=== PATIENT | male | born 1955 | race Caucasian/White ===

== ENCOUNTER 2021-12-17 00:50 | Inpatient (IN) ==
[2021-12-17] MEDS ORDERED: Acetaminophen 325 MG TABLET PO PRN (05:30)
[2021-12-17] MEDS ORDERED: Melatonin 3 MG TABLET PO PRN (05:30)
[2021-12-17] MEDS ORDERED: Naloxone 0.4 MG/ML INJ IVP PRN (05:30)
[2021-12-17] MEDS ORDERED: Ondansetron 4 MG/2 ML VIAL IVP PRN (05:30)
[2021-12-17] MEDS ORDERED: *HR* HYDROcodone/Acet 5/325 mg TABLET PO PRN (05:30)
[2021-12-17] MEDS ORDERED: Iopamidol - 370 500 ML MLS IVP ONE (05:37)
[2021-12-17] MEDS: 0.9 % Sodium Chloride 1,000 ML IVC SCH (06:01)
[2021-12-17] MEDS: Ipratropium/Albuterol Neb 3 ML IH PRN (06:02)
[2021-12-17 06:41] LABS: Basophils % 0.3 %; Hematocrit 41.6 % (37.5-50.1); Hemoglobin 15.6 g/dL (12.9-16.9); Immature Granulocytes % 0.4 % (0-4); Lymphocytes # 0.3 K/mcL (0.6-4.6); Lymphocytes % 2.4 %; Mean Corpuscular HGB Conc 37.5 g/dL (31.6-35.5); Mean Corpuscular Hemoglobin 33.1 pg (28.0-33.3); Mean Corpuscular Volume 88.3 fL (83.0-100.0); Mean Platelet Volume 10.5 fL (9.4-12.4); Monocytes # 0.1 K/mcL (0.0-1.3); Monocytes % 0.7 %; Platelet Count 235 K/mcL (140-400); Red Blood Count 4.71 M/mcL (4.19-5.50); Red Cell Distribution Width 12.2 % (11.5-14.5); Segmented Neutrophils % 96.2 %; White Blood Count 11.4 K/mcL (4.3-11.1)
[2021-12-17 06:49] LABS: INR 1.1; Prothrombin Time 11.8 Seconds (9.4-12.1)
[2021-12-17 07:05] LABS: Calcium 9.4 mg/dL (8.6-10.3)
[2021-12-17] MEDS: cefTRIAXone 1,000 MG in Water for inj. (sterile) 10 ML IVP SCH (10:37)
[2021-12-17] MEDS: Azithromycin 500 MG in 0.9 % Sodium Chloride 250 ML IVPB SCH (10:40)
[2021-12-17] MEDS: MethylPREDNISolone 40 MG/ML VIAL IVP SCH ×2 (10:40→18:02)
[2021-12-17 11:59] LABS: Calcium 9.4 mg/dL (8.6-10.3); Potassium 4.3 mEq/L (3.5-5.1)
[2021-12-17] MEDS: *HR* Heparin 5,000 UNIT/ML VIAL SQ SCH (15:00)
[2021-12-17 18:58] LABS: Calcium 9.1 mg/dL (8.6-10.3); Potassium 4.3 mEq/L (3.5-5.1)
[2021-12-17] MEDS ORDERED: Metoprolol XL (24 HR) Succ 50 MG TAB.ER.24H PO SCH (21:00)
[2021-12-17] MEDS ORDERED: polyethylene glycoL 3350 17 GM POWD.PACK PO PRN (21:13)
[2021-12-17 21:47] LABS: Bilirubin,Urine Negative (Negative); Blood,Urine Negative (Negative); Clarity,Urine Clear (Clear); Color,Urine Light-Yellow (Yellow); Glucose,Urine (UA) Normal (Normal); Ketones,Urine Negative (Negative); Leukocyte Esterase,Urine Moderate (Negative); Mucus,Urine Few per lpf (None-Few); Nitrite,Urine Negative (Negative); PH,Urine 6.5 pH Units (5.0-8.0); Protein,Urine Trace mg/dL (Neg-Trace); RBC,Urine 0-3 per hpf (0-3); Specific Gravity,Urine 1.014 (1.010-1.025); Urobilinogen,Urine Normal (Normal); WBC,Urine 30-50 per hpf (0-3)
[2021-12-17 22:08] LABS: Calcium 9.2 mg/dL (8.6-10.3); Potassium 4.4 mEq/L (3.5-5.1)
[2021-12-18] MEDS: 0.9 % Sodium Chloride 1,000 ML IVC SCH (00:08)
[2021-12-18] MEDS: QUEtiapine Fumarate 300 MG TABLET PO SCH ×2 (00:09→20:13)
[2021-12-18] MEDS: *HR* Heparin 5,000 UNIT/ML VIAL SQ SCH ×4 (00:10→23:08)
[2021-12-18] MEDS: MethylPREDNISolone 40 MG/ML VIAL IVP SCH ×2 (00:10→11:01)
[2021-12-18] MEDS: *HR* Metoprolol 5 MG/5 ML VIAL IVP SCH ×7 (00:10→23:07)
[2021-12-18] MEDS ORDERED: Milk and Molasses Enema 200 ML RC ONE (00:45)
[2021-12-18] MEDS ORDERED: Pantoprazole 40 MG in 0.9 % Sodium Chloride Mini Bag 100 ML IVC SCH (01:30)
[2021-12-18 01:31] LABS: Basophils % 0.1 %; Hematocrit 39.1 % (37.5-50.1); Hemoglobin 14.5 g/dL (12.9-16.9); Immature Granulocytes % 0.5 % (0-4); Lymphocytes # 0.6 K/mcL (0.6-4.6); Lymphocytes % 3.5 %; Mean Corpuscular Hemoglobin 32.4 pg (28.0-33.3); Mean Corpuscular Volume 87.5 fL (83.0-100.0); Mean Platelet Volume 10.4 fL (9.4-12.4); Monocytes % 6.2 %; Neutrophils # 14.7 K/mcL (1.6-8.9); Platelet Count 258 K/mcL (140-400); Red Blood Count 4.47 M/mcL (4.19-5.50); Red Cell Distribution Width 11.9 % (11.5-14.5); Segmented Neutrophils % 89.7 %; White Blood Count 16.4 K/mcL (4.3-11.1)
[2021-12-18] MEDS ORDERED: Pantoprazole 40 MG VIAL IVP ONE (01:32)
[2021-12-18 01:36] LABS: Mean Corpuscular HGB Conc 37.1 g/dL (31.6-35.5)
[2021-12-18] MEDS: Azithromycin 500 MG in 0.9 % Sodium Chloride 250 ML IVPB SCH (06:29)
[2021-12-18 07:04] LABS: Prothrombin Time 11.6 Seconds (9.4-12.1)
[2021-12-18 07:15] LABS: Calcium 8.7 mg/dL (8.6-10.3); Potassium 4.4 mEq/L (3.5-5.1)
[2021-12-18 07:16] LABS: Calcium 8.8 mg/dL (8.6-10.3); Potassium 4.5 mEq/L (3.5-5.1)
[2021-12-18 10:39] LABS: Calcium 8.9 mg/dL (8.6-10.3); Potassium 4.4 mEq/L (3.5-5.1)
[2021-12-18] MEDS: cefTRIAXone 1,000 MG in Water for inj. (sterile) 10 ML IVP SCH (10:42)
[2021-12-18] MEDS: QUEtiapine Fumarate 25 MG TABLET PO SCH ×2 (10:42→16:54)
[2021-12-18] MEDS: lisinopriL 20 MG TABLET PO SCH (10:42)
[2021-12-18] MEDS: Ipratropium/Albuterol Neb 3 ML IH PRN (11:25)
[2021-12-18 14:29] LABS: Potassium 4.4 mEq/L (3.5-5.1)
[2021-12-18 18:27] LABS: Calcium 8.8 mg/dL (8.6-10.3); Potassium 4.2 mEq/L (3.5-5.1)
[2021-12-18 22:30] LABS: Potassium 4.2 mEq/L (3.5-5.1)
[2021-12-19 03:34] LABS: Basophils % 0.1 %; Hematocrit 39.7 % (37.5-50.1); Hemoglobin 14.3 g/dL (12.9-16.9); Immature Granulocytes % 0.4 % (0-4); Lymphocytes # 1.3 K/mcL (0.6-4.6); Lymphocytes % 8.7 %; Mean Corpuscular Hemoglobin 32.1 pg (28.0-33.3); Mean Corpuscular Volume 89.2 fL (83.0-100.0); Mean Platelet Volume 10.5 fL (9.4-12.4); Monocytes # 1.5 K/mcL (0.0-1.3); Monocytes % 10.7 %; Neutrophils # 11.4 K/mcL (1.6-8.9); Platelet Count 204 K/mcL (140-400); Red Blood Count 4.45 M/mcL (4.19-5.50); Red Cell Distribution Width 12.4 % (11.5-14.5); Segmented Neutrophils % 80.1 %; White Blood Count 14.3 K/mcL (4.3-11.1)
[2021-12-19] MEDS: *HR* Metoprolol 5 MG/5 ML VIAL IVP SCH ×3 (03:37→10:51)
[2021-12-19 03:41] LABS: Calcium 9.1 mg/dL (8.6-10.3); Potassium 3.8 mEq/L (3.5-5.1)
[2021-12-19] MEDS: Ipratropium/Albuterol Neb 3 ML IH PRN (04:24)
[2021-12-19] MEDS: *HR* Heparin 5,000 UNIT/ML VIAL SQ SCH ×2 (05:16→17:29)
[2021-12-19] MEDS: Azithromycin 500 MG in 0.9 % Sodium Chloride 250 ML IVPB SCH (06:55)
[2021-12-19] MEDS ORDERED: predniSONE 20 MG TABLET PO SCH (09:00)
[2021-12-19] MEDS: QUEtiapine Fumarate 25 MG TABLET PO SCH ×2 (09:20→17:32)
[2021-12-19] MEDS: cefTRIAXone 1,000 MG in Water for inj. (sterile) 10 ML IVP SCH (09:20)
[2021-12-19] MEDS: lisinopriL 20 MG TABLET PO SCH (09:20)
[2021-12-19 09:34] LABS: Total Volume 24 Hour,Urine 7.46 Liters (0.80-1.80)
[2021-12-19 10:53] VITALS: BP 118/75; PULSE 91; TEMP 98.1
[2021-12-19 11:08] LABS: Calcium 8.8 mg/dL (8.6-10.3); Potassium 3.8 mEq/L (3.5-5.1)
[2021-12-19] MEDS ORDERED: Metoprolol XL (24 HR) Succ 50 MG TAB.ER.24H PO SCH (12:48)
[2021-12-19 14:43] VITALS: O2SAT 97
[2021-12-19 14:55] LABS: Potassium 4.3 mEq/L (3.5-5.1)
[2021-12-19] MEDS ORDERED: FluPHENAZine Decanoate 25 MG/ML MLS IM SCH (17:00)
[2021-12-19] MEDS ORDERED: QUEtiapine Fumarate 300 MG TABLET PO SCH (21:00)
[2021-12-19] MEDS ORDERED: Famotidine 20 MG TABLET PO SCH (21:00)
[2021-12-20] MEDS ORDERED: Multivit/Ca/Min/Fe/FA 1 TAB TABLET PO SCH (09:00)
[2021-12-20] MEDS ORDERED: Aspirin Enteric Coated 81 MG Tablet PO SCH (09:00)
[2021-12-21 15:08] LABS: Immunoglobulin A 124 mg/dL (68-408); Immunoglobulin G 1455 mg/dL (768-1632); Immunoglobulin M 105 mg/dL (35-263); Kappa Qnt Free Light Chains 28.34 mg/L (3.30-19.40); Lambda Qnt Free Light Chains 20.21 mg/L (5.71-26.30)
== END 2021-12-19 18:21 | DRG 177 ==
LOC: 2NENU → SUATTDRO 04:40
PROVIDERS: ADMIT Internal Medicine; ATTEND Internal Medicine

== ENCOUNTER 2022-01-27 12:01 | Inpatient (IN) ==
[2022-01-27] MEDS ORDERED: Iopamidol - 370 500 ML MLS IVP ONE (12:04)
[2022-01-27 12:52] LABS: Hematocrit 33.7 % (37.5-50.1); Hemoglobin 12.2 g/dL (12.9-16.9); Mean Corpuscular HGB Conc 36.2 g/dL (31.6-35.5); Mean Corpuscular Hemoglobin 33.5 pg (28.0-33.3); Mean Corpuscular Volume 92.6 fL (83.0-100.0); Mean Platelet Volume 11.5 fL (9.4-12.4); Platelet Count 183 K/mcL (140-400); Red Blood Count 3.64 M/mcL (4.19-5.50); White Blood Count 24.1 K/mcL (4.3-11.1)
[2022-01-27] MEDS ORDERED: Azithromycin 500 MG in 0.9 % Sodium Chloride 250 ML IVPB ONE (12:56)
[2022-01-27] MEDS ORDERED: cefTRIAXone 2,000 MG in 0.9 % Sodium Chloride 20 ML IVP ONE (13:00)
[2022-01-27 13:01] LABS: INR 1.2; Prothrombin Time 13.7 Seconds (9.4-12.1)
[2022-01-27 13:05] LABS: Activated Partial Thrombo Time 19.9 Seconds (26.0-36.0)
[2022-01-27 13:13] LABS: Calcium 8.7 mg/dL (8.6-10.3); Potassium 3.7 mEq/L (3.5-5.1); Troponin I 0.04 ng/mL (< 0.04)
[2022-01-27 14:10] LABS: Adenovirus Not Detected (Not Detect); Bordetella Pertussis Not Detected (Not Detect); Chlamydophila pneumoniae Not Detected (Not Detect); Coronavirus 229E Not Detected (Not Detect); Coronavirus HKU1 Not Detected (Not Detect); Coronavirus NL63 Not Detected (Not Detect); Coronavirus OC43 Not Detected (Not Detect); Human Metapneumovirus Not Detected (Not Detect); Human Rhinovirus/Enterovirus Not Detected (Not Detect); Influenza A Subtype 2009 H1 Not Detected (Not Detect); Influenza B Not Detected (Not Detect); Mycoplasma pneumoniae Not Detected (Not Detect); Parainfluenza Virus 1 Not Detected (Not Detect); Parainfluenza Virus 2 Not Detected (Not Detect); Parainfluenza Virus 3 Not Detected (Not Detect); Parainfluenza Virus 4 Not Detected (Not Detect); Respiratory Syncytial Virus Not Detected (Not Detect); SARS-CoV-2 Not Detected (Not Detect)
[2022-01-27] MEDS ORDERED: Aspirin 81 MG TAB.CHEW PO STA (14:29)
[2022-01-27] MEDS ORDERED: Melatonin 3 MG TABLET PO PRN (15:19)
[2022-01-27] MEDS ORDERED: MOM Conc 10 ML UD.LIQ PO PRN (15:19)
[2022-01-27] MEDS ORDERED: Mag Hydrox/Al Hydrox/Simeth 30 ML UDC PO PRN (15:19)
[2022-01-27] MEDS ORDERED: Naloxone 0.4 MG/ML INJ IVP PRN (15:19)
[2022-01-27] MEDS ORDERED: Ondansetron ODT 4 MG TAB.RAPDIS SL PRN (15:19)
[2022-01-27 19:51] LABS: Bacteria,Urine Few per hpf (None-Few); Bilirubin,Urine Negative (Negative); Blood,Urine Small (Negative); Clarity,Urine Turbid (Clear); Color,Urine Yellow (Yellow); Glucose,Urine (UA) Normal (Normal); Ketones,Urine Trace mg/dL (Negative); Leukocyte Esterase,Urine Large (Negative); Mucus,Urine Few per lpf (None-Few); Nitrite,Urine Positive (Negative); Protein,Urine 50 mg/dL (Neg-Trace); RBC,Urine 15-30 per hpf (0-3); Specific Gravity,Urine > 1.030 (1.010-1.025); Squamous Epithelial Cell,Urine Few per hpf (None-Few); Urobilinogen,Urine Normal (Normal); WBC,Urine TNTC per hpf (0-3)
[2022-01-27] MEDS ORDERED: Divalproex (24 HR) 500 MG TABLET PO SCH (21:00)
[2022-01-27] MEDS ORDERED: Haloperidol Lactate 5 MG/ML VIAL IVP ONE (22:10)
[2022-01-27] MEDS ORDERED: *HR* Metoprolol 5 MG/5 ML VIAL IVP ONE (23:04)
[2022-01-27] MEDS ORDERED: QUEtiapine Fumarate 25 MG TABLET PO SCH (23:15)
[2022-01-27] MEDS: Ipratropium/Albuterol Neb 3 ML IH PRN (23:21)
[2022-01-28] MEDS: *HR* LORazepam 2 MG/ML VIAL IVP ONE ×2 (01:32→04:57)
[2022-01-28] MEDS ORDERED: 0.9 % Sodium Chloride 1,000 ML IVC ONE (02:34)
[2022-01-28] MEDS ORDERED: *HR* Metoprolol 5 MG/5 ML VIAL IVP ONE (02:35)
[2022-01-28] MEDS ORDERED: *HR* LORazepam 2 MG/ML VIAL IVP ONE (04:37)
[2022-01-28] MEDS: *HR* Enoxaparin 40 MG/0.4 ML SYRINGE SQ SCH (07:40)
[2022-01-28] MEDS: Azithromycin 500 MG in 0.9 % Sodium Chloride 250 ML IVPB SCH (07:41)
[2022-01-28] MEDS: Aspirin Enteric Coated 81 MG Tablet PO SCH (07:49)
[2022-01-28] MEDS: cefTRIAXone 1,000 MG in 0.9 % Sodium Chloride Mini Bag 100 ML IVPB SCH (07:54)
[2022-01-28] MEDS ORDERED: Metoprolol XL (24 HR) Succ 25 MG TAB.ER.24H PO SCH (09:00)
[2022-01-28] MEDS ORDERED: Acetaminophen 325 MG TABLET PO PRN (09:40)
[2022-01-28 11:05] LABS: Basophils # 0.1 K/mcL (0.0-0.2); Basophils % 0.7 %; Eosinophils % 0.3 %; Hematocrit 36.3 % (37.5-50.1); Hemoglobin 12.7 g/dL (12.9-16.9); Immature Granulocytes % 0.5 % (0-4); Lymphocytes # 0.3 K/mcL (0.6-4.6); Lymphocytes % 2.7 %; Mean Corpuscular Hemoglobin 32.5 pg (28.0-33.3); Mean Corpuscular Volume 92.8 fL (83.0-100.0); Mean Platelet Volume 10.4 fL (9.4-12.4); Monocytes # 0.8 K/mcL (0.0-1.3); Monocytes % 7.5 %; Neutrophils # 8.9 K/mcL (1.6-8.9); Platelet Count 214 K/mcL (140-400); Red Blood Count 3.91 M/mcL (4.19-5.50); Red Cell Distribution Width 13.8 % (11.5-14.5); Segmented Neutrophils % 88.3 %
[2022-01-28 11:09] LABS: White Blood Count 10.1 K/mcL (4.3-11.1)
[2022-01-28 11:26] LABS: Calcium 8.5 mg/dL (8.6-10.3); Potassium 3.6 mEq/L (3.5-5.1)
[2022-01-28] MEDS: QUEtiapine Fumarate 25 MG TABLET PO SCH ×2 (11:57→18:06)
[2022-01-28] MEDS: Ipratropium/Albuterol Neb 3 ML IH PRN (13:00)
[2022-01-28] MEDS: Nicotine 14 MG PATCH.TD24 TD SCH (20:09)
[2022-01-28] MEDS ORDERED: QUEtiapine Fumarate 300 MG TABLET PO SCH (21:00)
[2022-01-29] MEDS: Ipratropium/Albuterol Neb 3 ML IH PRN (00:34)
[2022-01-29] MEDS: *HR* Enoxaparin 40 MG/0.4 ML SYRINGE SQ SCH (05:54)
[2022-01-29] MEDS: QUEtiapine Fumarate 25 MG TABLET PO SCH ×3 (08:01→15:21)
[2022-01-29] MEDS: cefTRIAXone 1,000 MG in 0.9 % Sodium Chloride Mini Bag 100 ML IVPB SCH (08:01)
[2022-01-29 08:07] VITALS: TEMP 97.2
[2022-01-29] MEDS: Aspirin Enteric Coated 81 MG Tablet PO SCH (08:40)
[2022-01-29] MEDS: Nicotine 14 MG PATCH.TD24 TD SCH (08:40)
[2022-01-29] MEDS: Azithromycin 500 MG in 0.9 % Sodium Chloride 250 ML IVPB SCH (08:49)
[2022-01-29] MEDS ORDERED: lisinopriL 20 MG TABLET PO SCH (09:00)
[2022-01-29] MEDS ORDERED: Haloperidol Lactate 5 MG/ML VIAL IVP ONE (10:19)
[2022-01-29] MEDS ORDERED: Metoprolol XL (24 HR) Succ 25 MG TAB.ER.24H PO SCH (11:15)
[2022-01-29] MEDS ORDERED: *HR* LORazepam 0.5 MG TABLET PO SCH (12:30)
[2022-01-29 15:21] VITALS: BP 129/78; PULSE 89; O2SAT 92
[2022-01-29 15:40] LABS: Adenovirus Not Detected (Not Detect); Bordetella Pertussis Not Detected (Not Detect); Chlamydophila pneumoniae Not Detected (Not Detect); Coronavirus 229E Not Detected (Not Detect); Coronavirus HKU1 Not Detected (Not Detect); Coronavirus NL63 Not Detected (Not Detect); Coronavirus OC43 Not Detected (Not Detect); Human Metapneumovirus Not Detected (Not Detect); Human Rhinovirus/Enterovirus Not Detected (Not Detect); Influenza A Subtype 2009 H1 Not Detected (Not Detect); Influenza B Not Detected (Not Detect); Mycoplasma pneumoniae Not Detected (Not Detect); Parainfluenza Virus 1 Not Detected (Not Detect); Parainfluenza Virus 2 Not Detected (Not Detect); Parainfluenza Virus 3 Not Detected (Not Detect); Parainfluenza Virus 4 Not Detected (Not Detect); Respiratory Syncytial Virus Not Detected (Not Detect); SARS-CoV-2 Not Detected (Not Detect)
[2022-01-29] MEDS ORDERED: Divalproex (24 HR) 500 MG TABLET PO SCH (21:00)
== END 2022-01-29 18:07 | DRG 871 ==
LOC: 2ANU 12:01 → EMEROOARM 12:01 → SUATTDRO 15:04 → 2ANU 17:02
PROVIDERS: ADMIT Hospitalist; ATTEND Registered Nurse

== ENCOUNTER 2022-01-29 23:04 | Inpatient (IN) ==
[2022-01-29] MEDS ORDERED: Vancomycin 1,250 MG/262.5 ML IV.SOLN IVPB ONE (23:46)
[2022-01-29] MEDS ORDERED: Piperacillin/Tazobactam 3.375 GM in 0.9 % Sodium Chloride Mini Bag 100 ML IVPB ONE (23:47)
[2022-01-29 23:57] LABS: Basophils % 0.4 %; Eosinophils % 0.1 %; Hematocrit 34.2 % (37.5-50.1); Hemoglobin 12.3 g/dL (12.9-16.9); Immature Granulocytes % 0.4 % (0-4); Lymphocytes # 0.5 K/mcL (0.6-4.6); Lymphocytes % 5.5 %; Mean Corpuscular Hemoglobin 32.5 pg (28.0-33.3); Mean Corpuscular Volume 90.2 fL (83.0-100.0); Mean Platelet Volume 10.5 fL (9.4-12.4); Monocytes # 1.2 K/mcL (0.0-1.3); Monocytes % 12.6 %; Platelet Count 194 K/mcL (140-400); Red Blood Count 3.79 M/mcL (4.19-5.50); Red Cell Distribution Width 13.7 % (11.5-14.5); White Blood Count 9.9 K/mcL (4.3-11.1)
[2022-01-30 00:30] LABS: Alanine Aminotransferase 25 Units/L (7-52); Albumin 3.2 g/dL (3.5-5.7); Alkaline Phosphatase 69 Units/L (34-104); Bilirubin,Direct 0.1 mg/dL (0.0-0.2); Bilirubin,Indirect 0.3 mg/dL (0.0-1.0); Bilirubin,Total 0.4 mg/dL (0.3-1.0); Blood Urea Nitrogen 19 mg/dL (8-23); Calcium 8.6 mg/dL (8.6-10.3); Chloride 98 mEq/L (98-107); Glucose 131 mg/dL (70-105); Osmolality,Calculated 278 (280-300); Potassium 3.2 mEq/L (3.5-5.1); Sodium 132 mEq/L (136-145); Troponin I < 0.03 ng/mL (< 0.04)
[2022-01-30 00:55] LABS: Bacteria,Urine Few per hpf (None-Few); Bilirubin,Urine Negative (Negative); Blood,Urine Trace (Negative); Clarity,Urine Clear (Clear); Color,Urine Light-Yellow (Yellow); Glucose,Urine (UA) Normal (Normal); Ketones,Urine Trace mg/dL (Negative); Leukocyte Esterase,Urine Moderate (Negative); Mucus,Urine Few per lpf (None-Few); Nitrite,Urine Negative (Negative); PH,Urine 6.5 pH Units (5.0-8.0); Protein,Urine 30 mg/dL (Neg-Trace); Specific Gravity,Urine 1.012 (1.010-1.025); Urobilinogen,Urine Normal (Normal); WBC,Urine 30-50 per hpf (0-3)
[2022-01-30] MEDS ORDERED: Ringers Solution, Lactated 1,000 ML IVC ONE (01:03)
[2022-01-30] MEDS ORDERED: 0.9 % Sodium Chloride 1,000 ML ONE (01:03)
[2022-01-30] MEDS: 0.9 % Sodium Chloride 1,000 ML IVC SCH ×2 (01:04→01:15)
[2022-01-30 01:30] LABS: Albumin/Globulin Ratio 1.2 (1.1-2.2); Aspartate Amino Transferase 65 Units/L (13-39); BUN/Creatinine Ratio 21 (6-26); Carbon Dioxide 25 mEq/L (23-29); Globulin 2.7 g/dL (2.4-3.5); Magnesium 1.7 mg/dL (1.6-2.6); Total Protein 5.9 g/dL (6.4-8.9)
[2022-01-30] MEDS ORDERED: Norepinephrine 4 MG/254 ML IV.SOLN IVC ONE (02:37)
[2022-01-30] MEDS: Norepinephrine 4 MG/254 ML IV.SOLN IVC SCH (02:43)
[2022-01-30] MEDS ORDERED: Naloxone 0.4 MG/ML INJ IVP PRN (04:00)
[2022-01-30] MEDS ORDERED: *HR* Enoxaparin 30 MG/0.3 ML SYRINGE SQ SCH (06:00)
[2022-01-30] MEDS: Piperacillin/Tazobactam 3.375 GM in 0.9 % Sodium Chloride Mini Bag 100 ML IVPB SCH ×3 (07:50→23:41)
[2022-01-30] MEDS ORDERED: *HR* LORazepam 0.5 MG TABLET PO PRN (07:53)
[2022-01-30 08:46] LABS: Calcium 8.2 mg/dL (8.6-10.3); Potassium 3.6 mEq/L (3.5-5.1)
[2022-01-30] MEDS: Divalproex (24 HR) 500 MG TABLET PO SCH ×2 (09:12→21:50)
[2022-01-30] MEDS: Aspirin Enteric Coated 81 MG Tablet PO SCH (09:12)
[2022-01-30] MEDS: Metoprolol XL (24 HR) Succ 25 MG TAB.ER.24H PO SCH (09:13)
[2022-01-30] MEDS: Famotidine 20 MG TABLET PO SCH ×2 (09:13→21:53)
[2022-01-30] MEDS ORDERED: methylPREDNISolone 125 MG/2 ML VIAL IVP ONE (09:17)
[2022-01-30] MEDS: Albuterol 2.5 MG/3 ML NEBULIZER IH SCH ×5 (09:30→23:42)
[2022-01-30 11:53] LABS: VBG HCO3 20 mEq/L (21-27); VBG PCO2 33 mmHg (41-51); VBG PO2 190 mmHg (25-50)
[2022-01-30] MEDS: MethylPREDNISolone 40 MG/ML VIAL IVP SCH ×2 (16:32→23:41)
[2022-01-30 18:16] LABS: Calcium 8.3 mg/dL (8.6-10.3); Potassium 3.8 mEq/L (3.5-5.1)
[2022-01-31] MEDS: Albuterol 2.5 MG/3 ML NEBULIZER IH SCH ×6 (04:37→22:35)
[2022-01-31 05:23] LABS: Basophils % 0.2 %; Hematocrit 33.1 % (37.5-50.1); Hemoglobin 11.9 g/dL (12.9-16.9); Immature Granulocytes % 0.7 % (0-4); Lymphocytes # 0.5 K/mcL (0.6-4.6); Lymphocytes % 5.8 %; Mean Corpuscular Hemoglobin 32.6 pg (28.0-33.3); Mean Corpuscular Volume 90.7 fL (83.0-100.0); Mean Platelet Volume 10.4 fL (9.4-12.4); Monocytes # 0.2 K/mcL (0.0-1.3); Monocytes % 2.6 %; Neutrophils # 7.7 K/mcL (1.6-8.9); Platelet Count 245 K/mcL (140-400); Red Blood Count 3.65 M/mcL (4.19-5.50); Red Cell Distribution Width 13.9 % (11.5-14.5); Segmented Neutrophils % 90.7 %; White Blood Count 8.5 K/mcL (4.3-11.1)
[2022-01-31 05:45] LABS: Albumin 3.3 g/dL (3.5-5.7); Albumin/Globulin Ratio 1.3 (1.1-2.2); Bilirubin,Total 0.5 mg/dL (0.3-1.0); Calcium 8.5 mg/dL (8.6-10.3); Globulin 2.6 g/dL (2.4-3.5); Potassium 3.7 mEq/L (3.5-5.1); Total Protein 5.9 g/dL (6.4-8.9)
[2022-01-31] MEDS ORDERED: *HR* Enoxaparin 40 MG/0.4 ML SYRINGE SQ SCH (06:00)
[2022-01-31 07:22] LABS: A.calcoaceticus-baumannii cplx Not Detected (Not Detect); Bacteroides fragilis by PCR Not Detected (Not Detect); Candida albicans by PCR Not Detected (Not Detect); Candida auris by PCR Not Detected (Not Detect); Candida glabrata by PCR Not Detected (Not Detect); Candida krusei by PCR Not Detected (Not Detect); Candida parapsilosis by PCR Not Detected (Not Detect); Candida tropicalis by PCR Not Detected (Not Detect); Crypto. neoformans/gattii PCR Not Detected (Not Detect); Enterobacter cloacae Cmplx PCR Not Detected (Not Detect); Enterobacterales by PCR Not Detected (Not Detect); Enterococcus faecalis by PCR Not Detected (Not Detect); Enterococcus faecium by PCR Not Detected (Not Detect); Escherichia coli by PCR Not Detected (Not Detect); Klebs. pneumoniae group by PCR Not Detected (Not Detect); Klebsiella aerogenes by PCR Not Detected (Not Detect); Klebsiella oxytoca by PCR Not Detected (Not Detect); Proteus by PCR Not Detected (Not Detect); Pseudomonas aeruginosa by PCR Not Detected (Not Detect); Salmonella species by PCR Not Detected (Not Detect); Serratia marcescens by PCR Not Detected (Not Detect); Staph epidermidis by PCR DETECTED (Not Detect); Staph lugdunensis by PCR Not Detected (Not Detect); Staphylococcus aureus by PCR Not Detected (Not Detect); Stenotrophomonas maltophilia Not Detected (Not Detect); Streptococcus agalactiae(B)PCR Not Detected (Not Detect); Streptococcus by PCR Not Detected (Not Detect); Streptococcus pneumoniae PCR Not Detected (Not Detect); Streptococcus pyogenes (A) PCR Not Detected (Not Detect); mecA/C Methicillin-Resist Gene DETECTED (Not Detect)
[2022-01-31] MEDS: Norepinephrine 4 MG/254 ML IV.SOLN IVC SCH (07:48)
[2022-01-31] MEDS: Aspirin Enteric Coated 81 MG Tablet PO SCH ×2 (08:01→11:24)
[2022-01-31] MEDS: Metoprolol XL (24 HR) Succ 25 MG TAB.ER.24H PO SCH ×2 (08:02→11:25)
[2022-01-31] MEDS: Famotidine 20 MG TABLET PO SCH ×3 (08:02→20:23)
[2022-01-31] MEDS: Divalproex (24 HR) 500 MG TABLET PO SCH ×3 (08:03→20:23)
[2022-01-31] MEDS: MethylPREDNISolone 40 MG/ML VIAL IVP SCH ×2 (08:03→17:46)
[2022-01-31] MEDS: Piperacillin/Tazobactam 3.375 GM in 0.9 % Sodium Chloride Mini Bag 100 ML IVPB SCH ×2 (08:04→17:46)
[2022-01-31] MEDS ORDERED: Naloxone 0.4 MG/ML INJ IVP PRN (08:50)
[2022-01-31] MEDS ORDERED: Vancomycin 1,250 MG/262.5 ML IV.SOLN IVPB SCH (20:00)
[2022-01-31] MEDS: *HR* LORazepam 0.5 MG TABLET PO PRN (20:23)
[2022-02-01] MEDS: MethylPREDNISolone 40 MG/ML VIAL IVP SCH ×3 (00:42→15:48)
[2022-02-01] MEDS: Piperacillin/Tazobactam 3.375 GM in 0.9 % Sodium Chloride Mini Bag 100 ML IVPB SCH ×3 (00:42→15:48)
[2022-02-01] MEDS: Albuterol 2.5 MG/3 ML NEBULIZER IH SCH ×6 (03:49→23:36)
[2022-02-01] MEDS: *HR* Enoxaparin 40 MG/0.4 ML SYRINGE SQ SCH (06:13)
[2022-02-01 06:26] LABS: Calcium 8.4 mg/dL (8.6-10.3); Potassium 3.7 mEq/L (3.5-5.1)
[2022-02-01 06:34] LABS: Basophils % 0.4 %; Hematocrit 31.8 % (37.5-50.1); Hemoglobin 11.4 g/dL (12.9-16.9); Immature Granulocytes % 1.3 % (0-4); Lymphocytes # 0.6 K/mcL (0.6-4.6); Lymphocytes % 6.1 %; Mean Corpuscular HGB Conc 35.8 g/dL (31.6-35.5); Mean Corpuscular Hemoglobin 32.9 pg (28.0-33.3); Mean Corpuscular Volume 91.9 fL (83.0-100.0); Mean Platelet Volume 10.6 fL (9.4-12.4); Monocytes # 0.3 K/mcL (0.0-1.3); Monocytes % 2.6 %; Neutrophils # 9.3 K/mcL (1.6-8.9); Platelet Count 229 K/mcL (140-400); Red Blood Count 3.46 M/mcL (4.19-5.50); Red Cell Distribution Width 14.3 % (11.5-14.5); Segmented Neutrophils % 89.6 %; White Blood Count 10.4 K/mcL (4.3-11.1)
[2022-02-01] MEDS ORDERED: 0.9 % Sodium Chloride 1,000 ML IVC SCH (07:30)
[2022-02-01] MEDS: Metoprolol XL (24 HR) Succ 25 MG TAB.ER.24H PO SCH (09:07)
[2022-02-01] MEDS: Divalproex (24 HR) 500 MG TABLET PO SCH ×2 (09:07→20:50)
[2022-02-01] MEDS: Famotidine 20 MG TABLET PO SCH ×2 (09:07→20:51)
[2022-02-01] MEDS: Aspirin Enteric Coated 81 MG Tablet PO SCH (09:08)
[2022-02-01] MEDS: Vancomycin 1,250 MG/262.5 ML IV.SOLN IVPB SCH (12:40)
[2022-02-01] MEDS ORDERED: Vancomycin 1,250 MG/262.5 ML IV.SOLN IVPB SCH (19:00)
[2022-02-01] MEDS: QUEtiapine Fumarate 25 MG TABLET PO SCH (20:50)
[2022-02-01] MEDS: *HR* LORazepam 0.5 MG TABLET PO PRN (21:12)
[2022-02-02] MEDS: Piperacillin/Tazobactam 3.375 GM in 0.9 % Sodium Chloride Mini Bag 100 ML IVPB SCH ×3 (00:59→15:58)
[2022-02-02] MEDS: MethylPREDNISolone 40 MG/ML VIAL IVP SCH ×3 (00:59→15:53)
[2022-02-02 03:11] LABS: Basophils # 0.1 K/mcL (0.0-0.2); Basophils % 0.6 %; Hematocrit 30.5 % (37.5-50.1); Hemoglobin 10.8 g/dL (12.9-16.9); Immature Granulocytes % 2.9 % (0-4); Lymphocytes % 11.8 %; Mean Corpuscular HGB Conc 35.4 g/dL (31.6-35.5); Mean Corpuscular Hemoglobin 32.3 pg (28.0-33.3); Mean Corpuscular Volume 91.3 fL (83.0-100.0); Monocytes # 0.8 K/mcL (0.0-1.3); Neutrophils # 6.7 K/mcL (1.6-8.9); Platelet Count 214 K/mcL (140-400); Red Blood Count 3.34 M/mcL (4.19-5.50); Segmented Neutrophils % 75.7 %; White Blood Count 8.8 K/mcL (4.3-11.1)
[2022-02-02 03:45] LABS: Calcium 8.5 mg/dL (8.6-10.3); Magnesium 1.6 mg/dL (1.6-2.6); Potassium 3.4 mEq/L (3.5-5.1)
[2022-02-02] MEDS: Albuterol 2.5 MG/3 ML NEBULIZER IH SCH ×6 (04:01→23:03)
[2022-02-02] MEDS: *HR* Enoxaparin 40 MG/0.4 ML SYRINGE SQ SCH (06:40)
[2022-02-02] MEDS: Aspirin Enteric Coated 81 MG Tablet PO SCH (08:48)
[2022-02-02] MEDS: Metoprolol XL (24 HR) Succ 25 MG TAB.ER.24H PO SCH (08:48)
[2022-02-02] MEDS: Divalproex (24 HR) 500 MG TABLET PO SCH ×2 (08:48→23:06)
[2022-02-02] MEDS: Famotidine 20 MG TABLET PO SCH ×2 (08:50→23:06)
[2022-02-02] MEDS: Vancomycin 1,250 MG/262.5 ML IV.SOLN IVPB SCH (12:14)
[2022-02-02] MEDS: QUEtiapine Fumarate 25 MG TABLET PO SCH (23:06)
[2022-02-03] MEDS: Piperacillin/Tazobactam 3.375 GM in 0.9 % Sodium Chloride Mini Bag 100 ML IVPB SCH ×2 (00:15→09:02)
[2022-02-03] MEDS: MethylPREDNISolone 40 MG/ML VIAL IVP SCH ×2 (00:17→08:59)
[2022-02-03] MEDS: Albuterol 2.5 MG/3 ML NEBULIZER IH SCH ×3 (03:48→11:03)
[2022-02-03] MEDS: *HR* Enoxaparin 40 MG/0.4 ML SYRINGE SQ SCH (06:17)
[2022-02-03 07:34] VITALS: BP 137/76; PULSE 63; TEMP 97.9; O2SAT 98
[2022-02-03] MEDS: Aspirin Enteric Coated 81 MG Tablet PO SCH (09:04)
[2022-02-03] MEDS: Metoprolol XL (24 HR) Succ 25 MG TAB.ER.24H PO SCH (09:04)
[2022-02-03] MEDS: Famotidine 20 MG TABLET PO SCH (09:05)
[2022-02-03] MEDS: Divalproex (24 HR) 500 MG TABLET PO SCH (09:09)
[2022-02-03 10:03] LABS: Influenza A PCR Negative (Negative); Influenza B PCR Negative (Negative); Resp. Syncytial Virus PCR Negative (Negative)
[2022-02-03 10:10] LABS: SARS-CoV-2 by PCR (In House) Negative (Negative)
== END 2022-02-03 11:28 | DRG 871 ==
LOC: ICNU 23:04 → EMEROOARM 23:04 → SUATTDRO 01-30 04:11 → ICNU 01-30 05:15 → 2ANU 01-31 09:34
PROVIDERS: ADMIT Internal Medicine; ATTEND Family Medicine